=== PATIENT | female | born 1995 | race African-American/Black ===

== ENCOUNTER → 2017-02-10 | Outpatient (CLI) | payer BC | LOC: ULTRA 11:14 | DX: E28.2 Polycystic ovarian syndrome (principal) ==

== ENCOUNTER 2019-07-13 23:30 | Emergency (ER) | payer BC ==
[~2019-07-13] VITALS: Ht 167.6 cm; Wt 65.8 kg
[2019-07-14 00:32] LABS: ABSOLUTE NEUTROPHILS 4.6 thou/uL (1.4-8.2); BASOPHILS 0.6 % (0.0-2.0); EOSINOPHILS 1.2 % (0.0-3.0); HEMATOCRIT 34.1 % (37.0-47.0); HEMOGLOBIN 11.3 gm/dL (12.0-15.0); LYMPHOCYTES 30.8 % (24.0-44.0); MCH 27.6 pg (26.0-34.0); MCV 83.4 fL (80.0-100.0); MONOCYTES 7.9 % (1.0-8.0); PLATELET COUNT 328 thou/uL (150-400); POLYS 59.5 % (36.0-66.0); RBC 4.09 mil/uL (4.20-5.00); RDW 13.2 % (10.5-14.5); WBC 7.8 thou/uL (4.0-11.0)
[2019-07-14 00:36] LABS: CALCIUM 8.8 mg/dL (8.5-10.1); CREATININE 1.2 mg/dL (0.6-1.0); POTASSIUM 3.2 mmol/L (3.5-5.1)
[2019-07-14 00:43] LABS: ALBUMIN 3.3 g/dL (3.4-5.0); TOTAL BILIRUBIN 0.3 mg/dL (<0.1-1.0); TOTAL PROTEIN 7.5 g/dL (6.4-8.2)
[2019-07-14 01:37] LABS: URINE BILIRUBIN NEGATIVE (Negative); URINE BLOOD 3+ (Negative); URINE CLARITY CLOUDY; URINE COLOR YELLOW; URINE GLUCOSE-RANDOM* NEGATIVE (Negative); URINE KETONES 1+ (Negative); URINE LEUKOCYTES-REFLEX NEGATIVE (Negative); URINE NITRITE-REFLEX NEGATIVE (Negative); URINE PROTEIN (DIPSTICK) NEGATIVE (Negative); URINE SPECIFIC GRAVITY 1.025 (1.005-1.035); URINE UROBILINOGEN 0.2 E.U./dl (0.2-1.0)
[2019-07-14] MEDS ORDERED: NORCO 5-325 TA1 EAC1 PO (01:40)
[2019-07-14] MEDS ORDERED: ZOFRAN ODT4 MG PO (01:40)
[2019-07-14 01:50] LABS: AMORPHOUS URATES Moderate /LPF (None Seen); BACTERIA-REFLEX 1-9 Few /HPF (None Seen); CASTS None Seen /LPF (None Seen); MUCUS 4-6 Moderate strn/LPF (None Seen); SQUAMOUS 4-10 Moderate /LPF (0-3); URINE WBC-REFLEX 0-5 Rare /HPF (0-5)
[2019-07-14 02:25] VITALS: BP 106/58
== END 2019-07-14 02:25 | disposition home or self-care (01) ==
LOC: ER 23:30
PROVIDERS: Emergency Medicine
DX: N20.0 Calculus of kidney (principal); R11.2 Nausea with vomiting, unspecified